=== PATIENT | female | born 1940 | race Caucasian/White ===

== ENCOUNTER 2016-10-15 13:12 | Outpatient (RCR) | payer MEDICARE, OTHER ==
[~2016-10-15 13:12] MED LIST: ACET118E PO; AMOX250S10 PO; ASP81TEC PO; CLON0.2T12 PO; CYCL10TA9 PO; LIDO20SO20 PO; MULT1CAP27 PO; NFNEB10T PO; OLME1TAB25 PO; OMEG1CAP51 PO; Tetracaine Lollipops PO
--- OUTSIDE RECORDS SUMMARY | 2016-10-15 13:16 | XMS REPORT | Continuity of Care Document ---
Author Author [facility] Organization [facility] Address Unknown Phone Unavailable Care Team Providers Care Acid Cutter Name Role Phone NICHOLAS AVERY DO PCP Insurance Providers Payer Name Policy Number Subscriber Name Relationship [employer] [id number] Virginie Lazo N 18 Self / Same As Patient [facility] Ins [place] [id number] Virginie Lazo 19 Self / Same As Patient Advance Directives Directive Response Recorded Date/Time Advance Directives Yes 05/05/14 8:00am Health Care Power of Health Physicist Yes 05/05/14 8:00am Organ Donor No 05/05/14 8:00am Resuscitation Status Full Code 05/05/14 8:00am Problems No known problems or medical conditions. Medications Medication Dose Route Sig Days/Qty Instructions Order Date Discontinued Date Status Clonidine HCl 0.2 Mg PO TWICE A DAY 04/27/14 Active [place]n/Hydrochlorothiazide 1 Tab PO DAILY 04/27/14 Active Nebivolol Hcl 10 Mg PO DAILY 04/27/14 Active Multivitamins 1 Cap PO DAILY 04/27/14 Active Aspirin 81 Mg PO DAILY 04/27/14 05/05/14 Discontinued [place]-3 Fatty Acids/Fish Oil 1,000 Mg PO DAILY 04/27/14 05/05/14 Discontinued Cyclobenzaprine HCl (Flexeril) 10 Mg PO EVERY 12 HOURS PRN MUSCLE SPASMS PRN MUSCLE SPASMS 04/27/14 Active [Tetracaine Lollipops] PO 05/05/14 Active Lidocaine Hcl 1 Tsp PO Q3H PRN PAIN 8 Qty 05/05/14 Active Amoxicillin 1 Tsp PO TWICE A DAY 7 Days 05/05/14 Active Acetaminophen With Codeine 1-2 Tsp PO EVERY 4HRS PRN PAIN 1 Qty Active Social History Social History Problem Response Recorded Date/Time Smoking Status Former Smoker 05/05/2014 8:00am Query Response Start Date Stop Date Smoking Status Former Smoker Hospital Discharge Instructions No hospital discharge instructions. Plan of Care No plan of care. Functional Status No functional status results. Allergies, Adverse Reactions, Alerts Allergen Type Severity Reaction Status Last Updated Sulfa (Sulfonamide Antibiotics) ([id number]) Allergy Unknown RASH Active 04/27/14 lisinopril ([id number]) Allergy Unknown RASH Active 04/27/14 Hydrochlorothiazide Allergy Unknown SWELLING Active 04/27/14 amlodipine ([id number]) Allergy Unknown RASH Active 04/27/14 Verapamil ([id number]) Allergy Unknown RASH Active 04/27/14 olmesartan ([id number]) Allergy Unknown SWELLING Active 04/27/14 Immunizations Name Given Type Date of Pneumonia Vaccine 07/16/08 Historical Vital Signs Acute Vital Signs Vital Response Date/Time Temperature (Fahrenheit) 97.6 degrees F (97.6 - 99.5) Temperature (Calculated Celsius) 36.22860 degrees C (36.4 - 37.5) Temperature Source Temporal Pulse Rate (adult) 67 bpm (60 - 90) Respiratory Rate 18 bpm (12 - 24) O2 Sat by Pulse Oximetry 96 % (88 - 100) Blood Pressure 149/68 mm Hg Pain Pain Intensity 0 Height (Feet) 5 feet Height (Inches) 2.50 inches Height (Calculated Centimeters) 158.487145 cm Weight (Pounds) 181 pounds Weight (Calculated Grams) 48778.220 gm Weight (Calculated Kilograms) 82.826394 kilograms Calculated BMI 32.57 Results Test Source Date Result Interp. Ref. Range Comments Alanine Aminotransferase (ALT/SGPT) April 27, 2014 2:16pm 42 U/L N 30-65 Albumin April 27, 2014 2:16pm 3.7 G/DL N 3.4-5.0 Alkaline Phosphatase April 27, 2014 2:16pm 100 U/L N 50-136 Aspartate Amino Transf (AST/SGOT) April 27, 2014 2:16pm 25 U/L N 15-37 BUN/Creatinine Ratio April 27, 2014 2:16pm 16 - Basophils # (Auto) April 27, 2014 2:16pm 0.0 10^3/uL N 0.0-0.1 Basophils (%) (Auto) April 27, 2014 2:16pm 1 % N 0-10 [id number]-8-Svewhmywmmalb October 21, 2012 9:54am 3.04 H MG/L - Blood Urea Nitrogen April 27, 2014 2:16pm 14 MG/DL N 7-18 Calcium Level April 27, 2014 2:16pm 9.6 MG/DL N 8.5-10.1 Carbon Dioxide Level April 27, 2014 2:16pm 34 MMOL/L H 21-32 Chloride Level April 27, 2014 2:16pm 99 MMOL/L L 101-110 Creatinine April 27, 2014 2:16pm 0.9 MG/DL N 0.6-1.3 Eosinophils # (Auto) April 27, 2014 2:16pm 0.2 10^3/uL N 0.0-0.3 Eosinophils (%) (Auto) April 27, 2014 2:16pm 3 % N 0-10 Erythrocyte Sedimentation Rate April 27, 2014 2:16pm 18 MM/HR N 0-30 Free Thyroxine March 30, 2014 2:40pm 0.78 NG/DL N 0.59-1.17 Glucose Level April 27, 2014 2:16pm 92 MG/DL N 74-106 Hematocrit April 27, 2014 2:16pm 42 % N 35-52 Hemoglobin April 27, 2014 2:16pm 14.0 G/DL N 11.5-16.0 Immunoglobulin A December 16, 2011 1:31pm 99 MG/DL - Immunoglobulin G December 16, 2011 1:31pm 822 MG/DL - Immunoglobulin M December 16, 2011 1:31pm 25 L MG/DL - Lactate Dehydrogenase April 27, 2014 2:16pm 170 U/L N 115-218 Lymphocytes # (Auto) April 27, 2014 2:16pm 2.1 X 10^3 N 1.0-4.0 Lymphocytes (%) (Auto) April 27, 2014 2:16pm 35 % N 12-44 Magnesium Level November 04, 2013 10:43am 1.9 MG/DL N 1.8-2.4 Mean Corpuscular Hemoglobin April 27, 2014 2:16pm 28 PG N 25-34 Mean Corpuscular Hemoglobin Concent April 27, 2014 2:16pm 34 G/DL N 32- 36 Mean Corpuscular Volume April 27, 2014 2:16pm 82 FL N 80-99 Mean Platelet Volume April 27, 2014 2:16pm 10.2 FL N 7.4-10.4 Monocytes # (Auto) April 27, 2014 2:16pm 0.7 X 10^3 N 0.0-1.0 Monocytes (%) (Auto) April 27, 2014 2:16pm 12 % N 0-12 Neutrophils # (Auto) April 27, 2014 2:16pm 2.9 X 10^3 N 1.8-7.8 Neutrophils (%) (Auto) April 27, 2014 2:16pm 49 % N 42-75 Platelet Count April 27, 2014 2:16pm 266 10^3/uL N 130-400 Potassium Level April 27, 2014 2:16pm 3.7 MMOL/L N 3.6-5.0 Red Blood Count April 27, 2014 2:16pm 5.08 10^6/uL N 4.35-5.85 Red Cell Distribution Width April 27, 2014 2:16pm 14.2 % N 10.0-14.5 Sodium Level April 27, 2014 2:16pm 138 MMOL/L N 135-145 TSH [place] Testing March 16, 2012 1:19pm 2.18 UIU/ML N 0.34-5.60 Thyroid Stimulating Hormone (TSH) March 30, 2014 2:40pm 2.34 UIU/ML N 0.34-5.60 Total Bilirubin April 27, 2014 2:16pm 0.6 MG/DL N 0.0-1.0 Total Protein April 27, 2014 2:16pm 7.6 G/DL N 6.4-8.2 Urine Bacteria April 05, 2011 2:32pm TRACE - Urine Bilirubin April 05, 2011 2:32pm NEGATIVE - Urine Casts April 05, 2011 2:32pm NONE - Urine Clarity April 05, 2011 2:32pm CLEAR - Urine Color April 05, 2011 2:32pm YELLOW - Urine Crystals April 05, 2011 2:32pm NONE - Urine Culture Indicated April 05, 2011 2:32pm NO - Urine Glucose (UA) April 05, 2011 2:32pm NEGATIVE - Urine Ketones April 05, 2011 2:32pm NEGATIVE - Urine Leukocyte Esterase April 05, 2011 2:32pm 1+ H - Urine Mucus April 05, 2011 2:32pm NEGATIVE - Urine Nitrite April 05, 2011 2:32pm NEGATIVE - Urine Protein April 05, 2011 2:32pm NEGATIVE - Urine RBC April 05, 2011 2:32pm 5-10 /HPF H - Urine Specific [place] April 05, 2011 2:32pm 1.005 L - Urine Squamous Epithelial Cells April 05, 2011 2:32pm 0-2 - Urine Urobilinogen April 05, 2011 2:32pm NORMAL MG/DL - Urine WBC April 05, 2011 2:32pm 2-5 /HPF - Urine pH April 05, 2011 2:32pm 7.0 - White Blood Count April 27, 2014 2:16pm 5.9 10^3/uL N 4.3-11.0 Estimat Glomerular Filtration Rate April 27, 2014 2:16pm > 60 - GFR INTERPRETIVE DATA UNITS FOR ESTIMATED GFR (eGFR): mL/min/1.73 M2 REFERENCE RANGE FOR ESTIMATED GFR (eGFR) eGFR NORMAL eGFR >60 MODERATELY DECREASED eGFR 30-59 SEVERLY DECREASED eGFR 15-29 KIDNEY FAILURE <15 (OR DIALYSIS) Urine RBC (Auto) April 05, 2011 2:32pm 1+ H - MRSA Screen Nasal April 27, 2014 1:55pm MRSA not isolated Procedures Procedure Status Date Provider(s) Tonsillectomy completed 05/05/14 SURESH ENCISO MD Tracing only of electrocardiogram completed 04/27/14 SURESH ENCISO MD Encounters Encounter Location Date/Time Registered Rec[facility]ring [facility] 04/27/14 2:05pm Registered Clinic [facility] 04/27/14 1:06pm Registered Clinic [facility] 04/14/14 10:15am Registered Clinic [facility] 04/05/14 1:22pm
[2016-10-15 13:31] LABS: BASOPHILS % (AUTO) 0 % (0-10); EOSINOPHILS # (AUTO) 0.1 10^3/uL (0.0-0.3); EOSINOPHILS % (AUTO) 2 % (0-10); LYMPHOCYTES # (AUTO) 1.8 X 10^3 (1.0-4.0); LYMPHOCYTES % (AUTO) 33 % (12-44); MEAN CORPUSCULAR HEMOGLOBIN 28 PG (25-34); MEAN CORPUSCULAR HGB CONC 34 G/DL (32-36); MEAN CORPUSCULAR VOLUME 81 FL (80-99); MONOCYTES # (AUTO) 0.6 X 10^3 (0.0-1.0); MONOCYTES % (AUTO) 10 % (0-12); NEUTROPHILS # (AUTO) 2.9 X 10^3 (1.8-7.8); NEUTROPHILS % (AUTO) 54 % (42-75); PLATELET COUNT 277 10^3/uL (130-400); RED BLOOD COUNT 4.78 10^6/uL (4.35-5.85); RED CELL DISTRIBUTION WIDTH 14.4 % (10.0-14.5); WHITE BLOOD COUNT 5.4 10^3/uL (4.3-11.0)
[2016-10-15 14:07] LABS: ALANINE AMINOTRANSFERASE 32 U/L (0-55); ALBUMIN 3.8 G/DL (3.2-4.5); ANION GAP 7 MMOL/L (5-14); ASPARTATE AMINO TRANSFERASE 27 U/L (5-34); BILIRUBIN,TOTAL 0.5 MG/DL (0.1-1.0); BLOOD UREA NITROGEN 11 MG/DL (7-18); BUN/CREATININE RATIO 17; CALCIUM 9.2 MG/DL (8.5-10.1); CARBON DIOXIDE 33 MMOL/L (21-32); CHLORIDE 98 MMOL/L (98-107); CREATININE SERUM 0.64 MG/DL (0.60-1.30); GFR ESTIMATED > 60; GLUCOSE 114 MG/DL (70-105); POTASSIUM 3.4 MMOL/L (3.6-5.0); SODIUM 138 MMOL/L (135-145); TOTAL PROTEIN 6.2 G/DL (6.4-8.2)
[2016-10-15 14:31] LABS: THYROID STIMULATING HORMONE 3.46 UIU/ML (0.35-4.94)
[2016-10-15 16:37] LABS: %SAT TOTAL IRON BINDING CAPIC 22 % (15-50); TIBC 335 ug/dL (280-380)
[2016-10-16 08:35] LABS: FERRITIN 42 ng/mL (15-150); UIBC 262 ug/dL (55-450)
== END 2017-01-13 | disposition home or self-care (01) ==
LOC: ONC 13:12
PROVIDERS: ATTEND Internal Medicine Hematology & Oncology
DX: C88.4 Extranodal marginal zone B-cell lymphoma of mucosa-associated lymphoid tissue [MALT-lymphoma] (principal); E04.2 Nontoxic multinodular goiter; I10 Essential (primary) hypertension; Z79.899 Other long term (current) drug therapy
CPT/HCPCS: 36415; 80053; 82728; 83540; 84439; 84443; 85025; 99213

== ENCOUNTER 2017-04-24 13:30 | Outpatient (RCR) | payer MEDICARE, OTHER ==
[2017-04-24 13:49] LABS: BASOPHILS % (AUTO) 1 % (0-10); EOSINOPHILS # (AUTO) 0.2 10^3/uL (0.0-0.3); EOSINOPHILS % (AUTO) 4 % (0-10); LYMPHOCYTES % (AUTO) 30 % (12-44); MEAN CORPUSCULAR HEMOGLOBIN 28 PG (25-34); MEAN CORPUSCULAR HGB CONC 33 G/DL (32-36); MEAN CORPUSCULAR VOLUME 83 FL (80-99); MEAN PLATELET VOLUME 10.7 FL (7.4-10.4); MONOCYTES # (AUTO) 0.7 X 10^3 (0.0-1.0); MONOCYTES % (AUTO) 11 % (0-12); NEUTROPHILS # (AUTO) 3.6 X 10^3 (1.8-7.8); NEUTROPHILS % (AUTO) 55 % (42-75); PLATELET COUNT 256 10^3/uL (130-400); RED BLOOD COUNT 4.65 10^6/uL (4.35-5.85); RED CELL DISTRIBUTION WIDTH 13.3 % (10.0-14.5); WHITE BLOOD COUNT 6.6 10^3/uL (4.3-11.0)
[2017-04-24 14:06] LABS: ALANINE AMINOTRANSFERASE 29 U/L (0-55); ALBUMIN 3.8 GM/DL (3.2-4.5); ANION GAP 11 MMOL/L (5-14); ASPARTATE AMINO TRANSFERASE 30 U/L (5-34); BILIRUBIN,TOTAL 0.4 MG/DL (0.1-1.0); BLOOD UREA NITROGEN 14 MG/DL (7-18); BUN/CREATININE RATIO 21; CALCIUM 9.3 MG/DL (8.5-10.1); CARBON DIOXIDE 28 MMOL/L (21-32); CHLORIDE 99 MMOL/L (98-107); CREATININE SERUM 0.68 MG/DL (0.60-1.30); GFR ESTIMATED > 60; GLUCOSE 106 MG/DL (70-105); POTASSIUM 3.2 MMOL/L (3.6-5.0); SODIUM 138 MMOL/L (135-145)
[2017-04-24 14:28] LABS: THYROID STIMULATING HORMONE 3.92 UIU/ML (0.35-4.94)
[2017-04-25 10:56] LABS: LACTATE DEHYDROGENASE 234 U/L (125-220)
== END 2017-07-23 | disposition home or self-care (01) ==
LOC: ONC 13:30
PROVIDERS: ATTEND Internal Medicine Hematology & Oncology
DX: C88.4 Extranodal marginal zone B-cell lymphoma of mucosa-associated lymphoid tissue [MALT-lymphoma] (principal); E04.2 Nontoxic multinodular goiter; I10 Essential (primary) hypertension; Z79.899 Other long term (current) drug therapy
CPT/HCPCS: 36415; 80053; 82728; 83540; 83615; 84439; 84443; 85025; 99213